=== PATIENT | male | born 1970 | race Caucasian/White ===

== ENCOUNTER 2019-09-09 12:15 | Emergency (ER) | payer SELFPAY ==
[~2019-09-09] VITALS: Ht 175.3 cm; Wt 97.5 kg
[2019-09-09 12:37] VITALS: BP 118/52; Ht 175.3 cm; Wt 97.5 kg
== END 2019-09-09 13:20 | disposition home or self-care (01) ==
LOC: ED 12:15
DX: Z76.0 Encounter for issue of repeat prescription (principal); I10 Essential (primary) hypertension; E11.40 Type 2 diabetes mellitus with diabetic neuropathy, unspecified